=== PATIENT | male | born 1940 | race Two or more races ===

== ENCOUNTER 2017-11-01 12:59 | Outpatient (CLI) | payer MEDICARE, MEDICAID ==
--- NOTE | 2017-11-01 14:25 | Diagnostic Imaging Report ---
Indication: Cough Comparison: None 2 views of the chest obtained. Findings: Cardiomediastinal silhouette and pulmonary vascularity are within normal limits for age. The diaphragmatic contour is smooth and costophrenic angles are sharp. No pleural effusions are identified. The bones are osteopenic. Impression: No acute disease
== END 2017-11-01 14:59 | disposition home or self-care (01) ==
LOC: RAD 12:59
DX: R05 Cough (principal); M85.80 Other specified disorders of bone density and structure, unspecified site
CPT/HCPCS: 71046

== ENCOUNTER 2017-11-14 13:59 | Outpatient (CLI) | payer MEDICARE, OTHER ==
--- NOTE | 2017-11-14 17:11 | Diagnostic Imaging Report ---
Indication: Cough Technique: 2 views of the chest Comparison: 11/01/2017 Findings: Lungs and pleural spaces are clear. The heart size is normal. There is no significant interim change Impression: Negative
== END 2017-11-14 15:59 | disposition home or self-care (01) ==
LOC: RAD 13:59
DX: J18.9 Pneumonia, unspecified organism (principal)
CPT/HCPCS: 71046

== ENCOUNTER 2018-04-16 14:45 | Outpatient (CLI) | payer MEDICARE, OTHER ==
--- NOTE | 2018-04-17 09:09 | Diagnostic Imaging Report ---
Indication: Shortness of breath and cough Technique: One view of the chest Comparison: 11/14/2017 Findings: Interim development of diffuse interstitial disease throughout both lungs. There is suggestion of diffuse honeycombing and bronchiectasis. There is also some focal patchy airspace opacity in the left upper lung. What may be currently B-lines are seen in the right peripheral lung. The heart size is normal. Pleural spaces are clear. Impression: Diffuse bilateral interstitial disease, developing since prior study of 11/14/2017. Appearance is suggestive of chronic interstitial fibrotic change, but such rapid progression over 5 months would be unusual so findings most likely represent acute interstitial disease. Correlate with clinical findings. Consider high-resolution chest CT for better clarification if clinically indicated Patchy airspace opacities in the left upper lung, could indicate acute patchy infiltrates Findings discussed by phone with Dr. Soliman at the time of interpretation
== END 2018-04-16 16:45 | disposition home or self-care (01) ==
LOC: RAD 14:45
DX: R50.9 Fever, unspecified (principal); R06.02 Shortness of breath; R05 Cough; J84.9 Interstitial pulmonary disease, unspecified
CPT/HCPCS: 71046